=== PATIENT | female | born 1970 | race Caucasian/White ===

== ENCOUNTER 2016-11-26 12:36 | Emergency (ER) | payer OTHER ==
[~2016-11-26] VITALS: Ht 162.6 cm; Wt 68.0 kg
[~2016-11-26 12:36] MED LIST: NOHOMEMEDICATIONS; NORCO 5-325 TA1 EACH PO; XANAX 0.25 MG0.25 MG PO; XANAX1 MG PO
[2016-11-26] MEDS ORDERED: IBUPROFEN 600600 M1 PO (13:00)
[2016-11-26] MEDS ORDERED: NORCO 5-325 TA1 EACH PO (13:00)
[2016-11-26] MEDS ORDERED: PROVENTIL HFA6.7 G1 INH (13:14)
[2016-11-26 13:34] VITALS: BP 116/78
== END 2016-11-26 13:34 | disposition home or self-care (01) ==
LOC: ER 12:36
DX: M25.511 Pain in right shoulder (principal); M25.521 Pain in right elbow; G89.29 Other chronic pain; F32.9 Major depressive disorder, single episode, unspecified; F41.9 Anxiety disorder, unspecified; J45.909 Unspecified asthma, uncomplicated; F41.0 Panic disorder [episodic paroxysmal anxiety]; Z91.041 Radiographic dye allergy status; Z91.018 Allergy to other foods; F17.210 Nicotine dependence, cigarettes, uncomplicated; F10.99 Alcohol use, unspecified with unspecified alcohol-induced disorder; W10.8XXA Fall (on) (from) other stairs and steps, initial encounter; Y93.89 Activity, other specified; Y92.89 Other specified places as the place of occurrence of the external cause; Y99.8 Other external cause status

== ENCOUNTER 2016-12-02 21:13 | Emergency (ER) | payer OTHER ==
[~2016-12-02] VITALS: Ht 162.6 cm; Wt 63.5 kg
[~2016-12-02 21:13] MED LIST changes: +IBUPROFEN 600600 M1 PO; +PROVENTIL HFA6.7 G1 INH
[2016-12-02 21:29] VITALS: BP 119/84
[2016-12-02] MEDS ORDERED: SEROQUEL 25 MG25 M1 (21:35)
[2016-12-02] MEDS ORDERED: LOPRESSOR25 PO (21:35)
[2016-12-03] MEDS ORDERED: ACETAMINOPHEN-1 EAC1 PO (15:33)
[2016-12-03] MEDS ORDERED: NAPROSYN500 MG PO (15:33)
[2016-12-03] MEDS ORDERED: ROBAXIN500 MG PO (15:33)
== END 2016-12-02 23:09 | disposition home or self-care (01) ==
LOC: ER 21:13
DX: Z53.21 Procedure and treatment not carried out due to patient leaving prior to being seen by health care provider (principal)

== ENCOUNTER 2016-12-03 14:51 | Emergency (ER) | payer OTHER ==
[~2016-12-03] VITALS: Ht 162.6 cm; Wt 63.5 kg
[~2016-12-03 14:51] MED LIST changes: +LOPRESSOR25 PO; +SEROQUEL 25 MG25 M1
[2016-12-03] MEDS ORDERED: ACETAMINOPHEN-1 EAC1 PO (15:33)
[2016-12-03] MEDS ORDERED: NAPROSYN500 MG PO (15:33)
[2016-12-03] MEDS ORDERED: ROBAXIN500 MG PO (15:33)
[2016-12-03 15:56] VITALS: BP 128/70
== END 2016-12-03 15:57 | disposition home or self-care (01) ==
LOC: ER 14:51
DX: M77.11 Lateral epicondylitis, right elbow (principal); M43.6 Torticollis; F41.9 Anxiety disorder, unspecified; F32.9 Major depressive disorder, single episode, unspecified; F41.0 Panic disorder [episodic paroxysmal anxiety]; F17.210 Nicotine dependence, cigarettes, uncomplicated; J45.909 Unspecified asthma, uncomplicated; Z91.041 Radiographic dye allergy status; Z91.018 Allergy to other foods

== ENCOUNTER 2016-12-14 21:33 | Emergency (ER) | payer OTHER ==
[~2016-12-14] VITALS: Ht 162.6 cm; Wt 77.1 kg
--- NOTE | ~2016-12-14 | EKG ---
[address] [place] [address] ELECTROCARDIOGRAM REPORT Name: KOREY YO Room #: DEP [facility]#: [id number] Admission: 12/14/16 Attend Phys: Discharge: 12/14/16 Date of : 72 Report #: [id number] THIS REPORT FOR: //name// [facility] ED Test Date: 2016-12-14 Test Time: 21:39:50 Pat Name: KOREY YO Department: Room: Gender: F Electrical Design Technician: SAMANTHA : 1970 Requested By: Barbara Juarez Order Number: [id number] MD: Jose Springer Measurements Intervals [place] Rate: 83 P: 54 MN: 132 QRS: 61 QRSD: 91 T: 47 QT: 383 QTc: 450 Interpretive Statements Sinus rhythm No significant abnormality Compared to ECG 09/24/2016 21:15:26 No significant change was found Electronically Signed On 12-15-2016 8:31:30 CDT by Jose Springer [email or web address] <ELECTRONICALLY SIGNED> By: Jose Springer MD, [facility] 12/15/16 0831 [id number] [id number] Jose Springer MD, FACC /EPI
[~2016-12-14 21:33] MED LIST changes: +ACETAMINOPHEN-1 EAC1 PO; +NAPROSYN500 MG PO; +ROBAXIN500 MG PO
[2016-12-14] MEDS ORDERED: XANAX 0.5 MG0.5 M1 PO (21:44)
[2016-12-14] MEDS ORDERED: PREDNISONE 10 M10 MG PO (22:30)
[2016-12-14] MEDS ORDERED: VENTOLIN HFA 1818 GM INH (22:30)
[2016-12-14 22:53] VITALS: BP 102/64
== END 2016-12-14 22:54 | disposition home or self-care (01) ==
LOC: ER 21:33
DX: M77.11 Lateral epicondylitis, right elbow (principal); F41.9 Anxiety disorder, unspecified; M54.12 Radiculopathy, cervical region; J45.909 Unspecified asthma, uncomplicated; F32.9 Major depressive disorder, single episode, unspecified; F17.210 Nicotine dependence, cigarettes, uncomplicated; Z91.041 Radiographic dye allergy status; Z91.018 Allergy to other foods

== ENCOUNTER 2018-07-16 23:07 | Emergency (ER) | payer OTHER ==
[~2018-07-16] VITALS: Ht 162.6 cm; Wt 70.3 kg
[~2018-07-16 23:07] MED LIST changes: +PREDNISONE 10 M10 MG PO; +VENTOLIN HFA 1818 GM INH; +XANAX 0.5 MG0.5 M1 PO
[2018-07-17] MEDS ORDERED: IBUPROFEN 400400 M2 PO (00:45)
[2018-07-17 01:11] VITALS: BP 116/71
== END 2018-07-17 01:15 | disposition home or self-care (01) ==
LOC: ER 23:07
DX: S90.812A Abrasion, left foot, initial encounter (principal); F17.210 Nicotine dependence, cigarettes, uncomplicated; F32.9 Major depressive disorder, single episode, unspecified; F41.9 Anxiety disorder, unspecified; J45.909 Unspecified asthma, uncomplicated; Z91.041 Radiographic dye allergy status; Z91.018 Allergy to other foods; W10.8XXA Fall (on) (from) other stairs and steps, initial encounter; Y92.89 Other specified places as the place of occurrence of the external cause; Y93.89 Activity, other specified; Y99.8 Other external cause status

== ENCOUNTER 2019-02-10 19:35 | Emergency (ER) | payer OTHER ==
[~2019-02-10] VITALS: Ht 162.6 cm; Wt 72.6 kg
[~2019-02-10 19:35] MED LIST changes: +IBUPROFEN 400400 M2 PO
[2019-02-10] MEDS ORDERED: NAPROSYN500 MG PO (20:34)
[2019-02-10 20:57] VITALS: BP 134/86
== END 2019-02-10 20:59 | disposition home or self-care (01) ==
LOC: ER 19:35
DX: M25.562 Pain in left knee (principal); M25.561 Pain in right knee; F41.9 Anxiety disorder, unspecified; J45.909 Unspecified asthma, uncomplicated; F17.210 Nicotine dependence, cigarettes, uncomplicated; F32.9 Major depressive disorder, single episode, unspecified; Z91.018 Allergy to other foods; Z88.8 Allergy status to other drugs, medicaments and biological substances; Z59.0 Homelessness